=== PATIENT | female | born 1970 ===

== ENCOUNTER 2019-12-28 06:16 | Day surgery (SDC) | payer OTHER ==
[~2019-12-28 06:16] MED LIST: CLARIN PO; FEROSUL325 MG PO; LEVOTHYROXINE25 MCG PO; PANTOPRAZOLE SO40 MG PO; RELAFEN DS1000 MG PO; SINGULAIR10 MG PO; SKELAXIN800 MG PO; SPRINTEC PO; VITAMIN D PO
[2019-12-28] MEDS ORDERED: Tylenol #3 PO (09:53)
[2019-12-28] MEDS ORDERED: MORGIDOX100 MG PO (09:53)
== END 2019-12-29 00:15 | disposition home or self-care (01) ==
LOC: CIR.AMB 06:16
PROVIDERS: ATTEND Obstetrics & Gynecology
DX: N84.0 Polyp of corpus uteri (principal); D25.0 Submucous leiomyoma of uterus; Z20.828 Contact with and (suspected) exposure to other viral communicable diseases

== ENCOUNTER 2020-11-08 08:30 | Inpatient (IN) | payer OTHER ==
[~2020-11-08] VITALS: Ht 157.5 cm; Wt 79.4 kg
[~2020-11-08 08:30] MED LIST changes: +MORGIDOX100 MG PO; +Tylenol #3 PO
[2020-11-08] MEDS ORDERED: ACTOS15 MG PO (10:20)
[2020-11-14] MEDS ORDERED: SPRINTEC 28 DA1 EACH (16:10)
[2020-11-14] MEDS ORDERED: CLARINEX-D 121 EACH (16:11)
[2020-11-15] MEDS ORDERED: NAPR500T14 PO (08:35)
== END 2020-11-15 12:30 | disposition home or self-care (01) | DRG 743 ==
LOC: O/R 11-14 06:04 → OB/GYN 11-14 06:04 → SURG 11-14 16:52
PROVIDERS: ADMIT Obstetrics & Gynecology; ATTEND Obstetrics & Gynecology
PROC: 0UT2FZZ Resection of Bilateral Ovaries, Via Natural or Artificial Opening With Percutaneous Endoscopic Assistance (ICD-10-PCS; 2020-11-14)
PROC: 0UT7FZZ Resection of Bilateral Fallopian Tubes, Via Natural or Artificial Opening With Percutaneous Endoscopic Assistance (ICD-10-PCS; 2020-11-14)
PROC: 0UQF7ZZ Repair Cul-de-sac, Via Natural or Artificial Opening (ICD-10-PCS; 2020-11-14)
PROC: 0USG7ZZ Reposition Vagina, Via Natural or Artificial Opening (ICD-10-PCS; 2020-11-14)
PROC: 0UT9FZZ Resection of Uterus, Via Natural or Artificial Opening With Percutaneous Endoscopic Assistance (ICD-10-PCS; principal; 2020-11-14 12:00)
DX: D25.1 Intramural leiomyoma of uterus (principal); N81.11 Cystocele, midline; N72 Inflammatory disease of cervix uteri; D25.2 Subserosal leiomyoma of uterus; N84.0 Polyp of corpus uteri; N94.5 Secondary dysmenorrhea; N92.0 Excessive and frequent menstruation with regular cycle